=== PATIENT | female | born 1965 ===

== ENCOUNTER 2017-12-06 17:11 | Emergency (ER) | payer OTHER ==
[~2017-12-06] VITALS: Ht 172.7 cm; Wt 55.8 kg
[~2017-12-06 17:11] MED LIST: HUMIRA40 MG/0.8 PO; ULTRACET PO
[2017-12-06] MEDS ORDERED: PANADOL EXTRA500 MG (17:40)
[2017-12-06] MEDS ORDERED: SEPTRA (17:40)
== END 2017-12-06 21:21 | disposition home or self-care (01) ==
LOC: ER 17:11
DX: N39.0 Urinary tract infection, site not specified (principal); B34.9 Viral infection, unspecified